=== PATIENT | female | born 1960 | race Caucasian/White ===

== ENCOUNTER → 2016-08-15 | Outpatient (CLI) | payer OTHER ==
[~2016-08-15] MED LIST: AMLODIPINE-VAL1 EAC2 PO; BENICAR HCT 20-1 TA1; FISH OIL 1,001000 M1 PO; LIPITOR40 MG PO; METOPROLOL TAR100 MG PO; PRAVASTATIN SOD40 MG PO
--- NOTE | ~2016-08-15 | CR97 ---
[facility] A Service of [facility] & [facility] [place] RADIOLOGY TEXT RESULTS PATIENT: INDER HA LOCATION: [facility] : 58 UNIT #: [id number] AGE: [address]: Michael Herrera III, MD SEX: F ORDER DR: [id number] [facility] [address] [place], [place] [address] [id number] O MR#: [id number] Acc #: [id number] NAME: INDER HA : 1960 SEX: F STUDY DATE/TIME: 08/15/2016 8:25 UNIT: [facility] ROOM: STUDY DESCRIPTION: CR Esophagram Attending Physician: Michael Herrera III, M.D. Referring Physician: Michael Herrera III, M.D. Ordering Physician: Michael Herrera III, M.D. Primary Care Physician: Alia Domingo M.D. MEDICAL IMAGING REPORT This report is preliminary unless electronic signature is present EXAM Esophagram HISTORY Preoperative evaluation for LAP-band surgery. TECHNIQUE The patient was given thin and thick barium and multiple views of the esophagus were obtained both upright and prone. Total fluoroscopy time 0.5 minutes. 13 spot films obtained. FINDINGS The esophagus is normal in caliber. There is no evidence of stricture. No polyps, masses or diverticula are seen. No hiatal hernia noted. IMPRESSION Normal. Dictated by... Bradley Waddell M.D. THIS IS AN ELECTRONICALLY VERIFIED REPORT Bradley Waddell M.D. at 08/15/2016 4:55 PM JOSE LUIS/alexandra TD: 08/15/2016 13:04 JOB #: [id number] MEDICAL IMAGING REPORT COPY
--- NOTE | ~2016-08-15 | CR63 ---
[facility] A Service of [facility] & [facility] RADIOLOGY TEXT RESULTS PATIENT: INDER HA LOCATION: [facility] : 58 UNIT #: [id number] AGE: [address]: Michael Herrera III, MD SEX: F ORDER DR: [id number] [facility] [address] [place], [place] [address] [id number] O MR#: [id number] Acc #: [id number] NAME: INDER HA : 1960 SEX: F STUDY DATE/TIME: 08/15/2016 7:57 UNIT: [facility] ROOM: STUDY DESCRIPTION: CR Chest 2 View Attending Physician: Michael Herrera III, M.D. Referring Physician: Michael Herrera III, M.D. Ordering Physician: Michael Herrera III, M.D. Primary Care Physician: Alia Domingo M.D. MEDICAL IMAGING REPORT This report is preliminary unless electronic signature is present EXAM PA and lateral chest INDICATION 55-year-old female preop chest x-ray for lap-band surgery. COMPARISON 12/03/2014 FINDINGS The lungs are well expanded and clear. Heart size is normal. Degenerative changes thoracic spine. IMPRESSION Negative chest. Dictated by... Jarvis Painting M.D. THIS IS AN ELECTRONICALLY VERIFIED REPORT Jarvis Painting M.D. at 08/18/2016 8:31 AM LD/laney TD: 08/15/2016 11:48 JOB #: [id number] MEDICAL IMAGING REPORT COPY
--- NOTE | ~2016-08-15 | EKG ---
PATIENT: INDER HA UNIT #: [id number] Ventricular Rate: 72 BPM Atrial Rate: 72 BPM P-R Interval: 178 ms QRS Duration: 90 ms Q-T Interval: 392 ms QTC Calculation(Bezet): 429 ms P Northrop: 63 degrees Calculated R Northrop: 17 degrees Calculated T Northrop: 19 degrees Diagnosis Line: Normal sinus rhythm Diagnosis Line: Possible Inferior infarct , age undetermined Diagnosis Line: Otherwise normal ECG Diagnosis Line: No previous ECGs available Diagnosis Line: Confirmed by JOSEP GILES MD ([id number]) on 08/18/2016 Diagnosis Line: 7:20:36 AM INTERPRETING MD: CHAN FONSECA
[2016-08-15 10:11] LABS: HEMATOCRIT 38.9 % (35.0-45.0); HEMOGLOBIN 12.6 gm/dL (12.0-16.0); MEAN CELL VOLUME 87.6 FL (83-96); MEAN CORPUSCULAR HEMOGLOBIN 28.4 PG (28-34); MEAN CORPUSCULAR HGB CONC 32.4 g/dL (30-36); MEAN PLATELET VOLUME 7.9 FL (6.5-11.5); RED BLOOD COUNT 4.44 X10e (3.90-5.30); RED CELL DISTRIBUTION WIDTH 13.4 % (11.0-15.5); WHITE BLOOD COUNT 8.6 X10e3 (4.0-10.5)
[2016-08-15 10:48] LABS: ALBUMIN SERUM 3.8 g/dL (3.5-5.0); BILIRUBIN,TOTAL 0.5 mg/dL (0.2-2.0); BUN/CREATININE RATIO 11.17; CALCIUM SERUM 9.5 mg/dL (8.4-10.2); CREATININE SERUM 3.4 mg/dL (0.6-1.4); GLOM FILT RATE Estimated 14.8 mL/min (>60); POTASSIUM 4.7 mmol/L (3.5-5.1); PROTEIN TOTAL SERUM 7.2 g/dL (6.0-8.3)
== END | disposition home or self-care (01) ==
LOC: CRAD 07:41
PROVIDERS: Surgery
DX: Z01.818 Encounter for other preprocedural examination (principal)
CPT/HCPCS: 36415; 71020; 74220; 80053; 80061; 84443; 85027; 93005

== ENCOUNTER → 2016-08-27 | Day surgery (SDC) | payer OTHER ==
--- NOTE | ~2016-08-27 | OR ---
Unit #: [id number] #: [id number] Patient: INDER HA [id number] [facility] [address]. [place], [place] [address] [id number] O MR#: [id number] NAME: INDER HA ROOM: Date of Procedure: 08/27/2016 Admission Date: 08/27/2016 Surgeon: Michael Herrera III, M.D. : 1960 Attending Physician: Michael Herrera III, M.D. Primary Care Physician: Alia Domingo M.D. OPERATIVE REPORT PREOPERATIVE DIAGNOSIS Chronic morbid obesity. POSTOPERATIVE DIAGNOSIS Chronic morbid obesity. SECONDARY DIAGNOSIS Anterior paraesophageal hernia. PROCEDURE PERFORMED Laparoscopic adjustable gastric banding (AP standard with regular port) and laparoscopic paraesophageal hernia repair. [facility] Dr. Dirk Saldana. SPECIMENS None. COMPLICATIONS None apparent. ESTIMATED BLOOD LOSS Minimal. INDICATIONS FOR PROCEDURE This is a 55-year-old lady, who has chronic morbid obesity with a BMI of 57 and associated comorbidities of hypertension and sleep apnea. She has been through the bariatric program at [facility] and understands risks and benefits of the procedure. DESCRIPTION OF PROCEDURE After consent was obtained, including the risks and benefits of slippage, erosion, port dysfunction, and possible failure of weight loss due to noncompliance, the patient was taken to the operating room and placed in the supine position. General anesthetic was administered and the abdomen was prepped and draped in standard surgical fashion. I began by making a 2 cm incision just above and to the left of the umbilicus. I used a Visiport to enter the peritoneal cavity without any difficulty. C02 pneumoperitoneum was then established. Next, I placed a 5 mm port in the right upper quadrant, a 5 mm Joaquín liver retractor in Unit #: [id number] #: [id number] Patient: INDER HA the subxiphoid region to provide exposure of the gastroesophageal junction. Next, a 10 mm port was placed in the left upper quadrant and a 5 mm port was placed in the left lateral subcostal region. I began by performing an examination of the GE junction to evaluate for a hiatal hernia. We then scored the peritoneal attachments overlying the angle of His. I then opened up the clear space in the gastrohepatic ligament, and then using 2 blunt graspers, I identified the small fat pad crossing over the right crura. I swept the fat anterior to the crura off the crura and using the pars flaccida, I created a retrogastric tunnel where the blunt grasper exited at the angle of His. Once I had made this tunnel safely, I then inserted an Allergan AP band into the abdominal cavity. This adjustable gastric band was then place around the upper part of the stomach and fastened and buckled anteriorly. We then tacked the lateral fundus over the band to the proximal pouch with 2 interrupted 0 Ethibond sutures. I then used a third stitch to imbricate the excess anterior stomach by going from the lesser curvature up towards where the last stitch was placed. We then had excellent hemostasis. I removed the Joaquín liver retractor. We then removed the port tubing through the initial port incision. The rest of the ports were removed, and the pneumoperitoneum was released. I then left a small tail on the tubing. We then attached the port to the excess band tubing. We placed a piece of Prolene mesh along the back side of the port and used a Prolene stitch to anchor this mesh in place. We then trimmed the excess mesh so that just a small footprint of mesh was in place behind the port. I then inserted the tubing back into the abdominal cavity, and we placed the port into a small pocket that was made just inferior to where our initial port incision was made. The mesh was in direct contact with the fascia, and this will scar in place to hold the port in place. We then injected all the port sites with 0.25% plain Marcaine, and I reapproximated the skin edges with interrupted 4-0 Vicryl subcuticular sutures. Steri-strips were then applied. The patient tolerated the procedure without any problems and returned to the recovery room in stable condition. ADDENDUM After exposure of the GE junction, the patient was noted to have a small to medium size anterior paraesophageal hernia. I scored the phrenoesophageal ligament, reduced the hernia defect and after identifying both the right and left crura, I reapproximated the defect with an interrupted 0 Ethibond [id number]-zl-[id number] suture. I then proceeded with the case as listed above. Dictated by... Michael Herrera III, M.D. VCL/kriss TD: 08/28/2016 07:01 JOB #: [id number] Unit #: [id number] #: [id number] Patient: INDER HA OPERATIVE REPORT Page 1 of 1 X Michael Herrera III, MD X PROCEDURE OPERATIVE NOTE
--- NOTE | ~2016-08-27 | CR7 ---
[facility] A Service of [facility] & [facility] RADIOLOGY TEXT RESULTS PATIENT: INDER HA LOCATION: [facility] : 58 UNIT #: [id number] AGE: [address]: Michael Herrera III, MD SEX: F ORDER DR: [id number] [place] [address] [facility] [place], [place] [address] [id number] O MR#: [id number] Acc #: [id number] NAME: INDER HA : 1960 SEX: F STUDY DATE/TIME: 08/27/2016 8:58 UNIT: [facility] ROOM: STUDY DESCRIPTION: CR Abdomen Single AP View Attending Physician: Michael Herrera III, M.D. Ordering Physician: Michael Herrera III, M.D. Primary Care Physician: Alia Domingo M.D. MEDICAL IMAGING REPORT This report is preliminary unless electronic signature is present EXAM AP of the abdomen INDICATIONS Status post lap-band placement. Initial exam. No comparisons. FINDINGS Status post Lap-Band placement. Phi angle 62 degrees. Bowel gas pattern nonobstructed. IMPRESSION Status post Lap-Band placement. Phi angle 62 degrees. Dictated by... Jarvis Painting M.D. THIS IS AN ELECTRONICALLY VERIFIED REPORT Jarvis Painting M.D. at 08/27/2016 4:28 PM Erickson TD: 08/27/2016 10:20 JOB #: [id number] MEDICAL IMAGING REPORT Page 1 of 1 COPY
== END | disposition home or self-care (01) ==
LOC: CSUR 05:54
DX: E66.01 Morbid (severe) obesity due to excess calories (principal); K44.9 Diaphragmatic hernia without obstruction or gangrene; Z68.43 Body mass index [BMI] 50.0-59.9, adult; I12.9 Hypertensive chronic kidney disease with stage 1 through stage 4 chronic kidney disease, or unspecified chronic kidney disease; N18.9 Chronic kidney disease, unspecified; E78.5 Hyperlipidemia, unspecified; G47.30 Sleep apnea, unspecified; Z87.718 Personal history of other specified (corrected) congenital malformations of genitourinary system; Z82.61 Family history of arthritis; Z83.49 Family history of other endocrine, nutritional and metabolic diseases; Z82.49 Family history of ischemic heart disease and other diseases of the circulatory system; Z81.1 Family history of alcohol abuse and dependence; Z79.899 Other long term (current) drug therapy; Z98.51 Tubal ligation status; Z98.890 Other specified postprocedural states
CPT/HCPCS: 74000; C1781; J0330; J0690; J1650; J1885; J2250; J2405; J2710; J3010